=== PATIENT | female | born 1995 | race American Indian/Alaskan Native ===

== ENCOUNTER 2021-01-06 16:54 | Emergency (ER) | payer OTHER ==
[2021-01-06 16:57] VITALS: BP 124/82
[2021-01-06] MEDS ORDERED: IBUPROFEN 600 MG TAB PO ONE (17:24)
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
== END 2021-01-06 18:34 | disposition home or self-care (01) ==
LOC: ED 16:54
DX: M25.551 Pain in right hip (principal); M54.2 Cervicalgia; Z88.2 Allergy status to sulfonamides; Z79.899 Other long term (current) drug therapy; V87.7XXA Person injured in collision between other specified motor vehicles (traffic), initial encounter; Y93.89 Activity, other specified; Y92.488 Other paved roadways as the place of occurrence of the external cause; Y99.8 Other external cause status
CPT/HCPCS: 72040; 99283